=== PATIENT | female | born 1950 | race Caucasian/White ===

== ENCOUNTER 2017-10-07 17:03 | Emergency (ER) | payer SELFPAY ==
[2017-10-07] MEDS: LIDOCAINE 1%/EPI 30 ML INJ INJ (17:27)
== END 2017-10-07 18:10 | disposition home or self-care (01) ==
LOC: FTE 17:03
DX: I83.018 Varicose veins of right lower extremity with ulcer other part of lower leg (principal); L97.819 Non-pressure chronic ulcer of other part of right lower leg with unspecified severity; I10 Essential (primary) hypertension
CPT/HCPCS: 12001; 99283-25